=== PATIENT | female | born 1975 | race Caucasian/White ===

== ENCOUNTER 2017-11-25 14:19 | Emergency (ER) | payer SELFPAY ==
[2017-11-25 14:46] VITALS: BP 150/92
[2017-11-25] MEDS ORDERED: Ibuprofen TAB* 600 MG PO ONE (14:54)
--- NOTE | 2017-11-25 15:42 | RAD ---
INDICATION: Midthoracic back pain COMPARISON: None TECHNIQUE: PA dual-energy views were obtained. FINDINGS: Bones/Soft Tissues: There are no acute bony findings. Cardiomediastinal: The cardiomediastinal silhouette is normal. Lungs: There are no infiltrates. Pleura: There are no pleural effusions. Other: None IMPRESSION: NO ACTIVE DISEASE.
--- NOTE | 2017-11-25 15:43 | RAD ---
INDICATION: Back pain COMPARISON: None TECHNIQUE: Routine 2 view imaging was performed FINDINGS: Bones: There are no acute bony findings. There are no significant osteoarthritic findings. Alignment: There is mild kyphosis Disc spaces: The disc spaces are well-maintained Soft tissues: There are no soft tissue abnormalities. IMPRESSION: MILD KYPHOSIS, OTHERWISE NEGATIVE.
--- NOTE | 2017-11-25 15:52 | UC ---
Vannesa Laird Gabriel, scribed for Jorge Luis Vasquez MD on 11/25/17 at 1458 . Back Pain HPI - HPI Summary HPI Summary: This patient is a 42 year old F [place] [facility] [place] that occurred on . Pt slipped down deck steps and landed on her back and buttocks. She heard an audible pop when she struck and laid on the ground in pain for 15 minutes before she was able to get up again. The patient rates the pain 7/10 in severity. Patient reports tingling down her lower back. - History of Current Complaint Chief Complaint: UCBackPain Stated Complaint: BACK AND HIP PAIN Time Seen by Provider: 11/25/17 14:50 Hx Obtained From: Patient Hx Last Menstrual Period: ablasion Onset/Duration: Lasting Days, Still Present Timing: Constant Severity Initially: Moderate Severity Currently: Moderate Pain Intensity: 7 Pain Scale Used: 0-10 Numeric Associated Signs And Symptoms: Positive: Tingling - down into lower back - Allergies/Home Medications Allergies/Adverse Reactions: Allergies Allergy/AdvReac Type Severity Reaction Status Date / Time Penicillins Allergy Intermediate Rash Verified 11/25/17 14:46 PMH/Surg Hx/FS Hx/Imm Hx Endocrine History: Thyroid Disease Cardiovascular History: Hypertension Respiratory History: Asthma - Surgical History Surgical History: Yes Surgery Procedure, Year, and Place: T+A A CHILD. FX LEFT TIB 2008 [facility] [place]. appendix 2015. thyroid 2016. tatydarian delgado 2015 - Family History Known Family History: Positive: Hypertension Negative: Respiratory Disease, Seizure Disorder - Social History Lives: With Family Alcohol Use: Weekly Substance Use Type: None Smoking Status (MU): Never Smoked Tobacco - Immunization History Most Recent Influenza Vaccination: never Most Recent Tetanus Shot: within last 10 years Most Recent Pneumonia Vaccination: never Review of Systems Musculoskeletal: Other: - lower back pain Neurological: Paresthesia - into lower back All Other Systems Reviewed And Are Negative: Yes Physical Exam Triage Information Reviewed: Yes Vital Signs: Initial Vital Signs Temp 98.6 F 11/25/17 14:38 Pulse 79 11/25/17 14:38 Resp 16 11/25/17 14:38 BP 150/92 11/25/17 14:38 Pulse Ox 99 11/25/17 14:38 Vital Signs Reviewed: Yes - Additional Comments General: well-appearing, no pain distress Skin: warm, color reflects adequate perfusion, dry Head: normal Eyes: EOMI, JUAN ENT: normal Neck: supple, nontender Respiratory: CTA, breath sounds present Cardiovascular: RRR Abdomen: soft, nontender Bowel: present Musculoskeletal: normal, strength/ROM intact Back: Thoracic spine is TTP as well as the left buttock. There is a spot of ecchymosis on the left buttock 2.5 inches in diameter Neurological: normal, sensory/motor intact, A&O x3 Psychological: affect/mood appropriate Diagnostics - Radiology CXR Radiology Interpretation Completed By: Radiologist - NO ACTIVE DISEASE. Dr. Vasquez has reviewed this report. T spine xray Radiology Interpretation Completed By: Radiologist - MILD KYPHOSIS, OTHERWISE NEGATIVE. Dr. Vasquez has reviewed this report. Back Pain Course/Dx - Course Course Of Treatment: BP noted and advised to follow up with PCP. Allergies noted. DISCUSSED RESULTS WITH PATIENT. NO NEUROLOGIC DEFICIT. F/U PMD; REEVAL SOONER IF ANY WORSENING OF SX/NEUROLOGIC DEFICIT. - Differential Dx/Diagnosis Provider Diagnoses: THORACIC BACK PAIN. HTN Discharge - Discharge Plan Condition: Stable Disposition: HOME Prescriptions: oxyCODONE/Acetamin 5/325 MG* [Percocet 5/325 TAB*] 1 tab PO Q4H PRN #20 tab MDD 6 PRN Reason: Pain Patient Education Materials: Thoracic Pain (ED) Referrals: Melecio Vang MD [Primary Care Provider] - Additional Instructions: FOLLOW UP WITH YOUR DOCTOR. GET RECHECKED FOR ANY WORSENING OF YOUR CONDITION; WEAKNESS, NUMBNESS, LOSS OF CONTROL OF BOWEL OR BLADDER OR QUESTIONS OR CONCERNS. Your blood pressure was elevated during today's visit. Please follow up with your primary care provider in 1-2 weeks. The documentation as recorded by the Vannesa ordaz Gabriel accurately reflects the service I personally performed and the decisions made by me, Jorge Luis Vasquez MD.
== END 2017-11-25 16:00 | disposition home or self-care (01) ==
LOC: UCEAST 14:19
DX: M54.6 Pain in thoracic spine (principal); M54.5 Low back pain; R20.2 Paresthesia of skin; I10 Essential (primary) hypertension; E07.9 Disorder of thyroid, unspecified; J45.909 Unspecified asthma, uncomplicated
CPT/HCPCS: 71045; 72070; 99212; A9270-GY; G0463

== ENCOUNTER 2019-01-24 09:17 | Emergency (ER) | payer BC ==
--- NOTE | 2019-01-24 09:54 | ED ---
Abdominal Pain/Female - HPI Summary HPI Summary: This patient is a 43 year old female presenting to [facility] with a chief complaint of intermittent RLQ pain since a few days ago. The patient has already had an appendectomy and the pain presents at night. She reports nausea and vomiting. She states it is painful upon palpation. She experienced similar symptoms a month ago but they did not find anything at [place]. She has a Hx of a uterine hemorrhage and kidney stones. She is worried that she might be experiencing one of these problems again. The patient rates her pain 9/10 in severity. - History of Current Complaint Chief Complaint: EDAbdPain Stated Complaint: VOMITING PER PT Time Seen by Provider: 01/24/19 09:44 Hx Obtained From: Patient Hx Last Menstrual Period: ablasion Onset/Duration: Sudden Onset, Lasting Days Timing: Intermittent Episode Lasting Severity Initially: Severe Severity Currently: Severe Pain Intensity: 9 Pain Scale Used: 0-10 Numeric Location: Discrete At: RLQ Radiates: No Associated Signs and Symptoms: Positive: Nausea, Vomiting Allergies/Adverse Reactions: Allergies Allergy/AdvReac Type Severity Reaction Status Date / Time Penicillins Allergy Intermediate Rash Verified 01/24/19 09:30 Home Medications: Home Medications Furosemide 20 mg PO DAILY 01/24/19 [History Confirmed 01/24/19] Levothyroxine Sodium 125 mcg PO DAILY 01/24/19 [History Confirmed 01/24/19] PMH/Surg Hx/FS Hx/Imm Hx Endocrine/Hematology History: Reports: Hx Thyroid Disease - removed Denies: Hx Diabetes Cardiovascular History: Reports: Hx Hypertension Respiratory History: Reports: Hx Asthma - MILD. NO MEDS Denies: Hx Chronic Obstructive Pulmonary Disease (COPD) GI History: Reports: Hx Gastroesophageal Reflux Disease - ON PRILOSEC, Hx Hiatal Hernia Denies: Hx Ulcer History: Reports: Hx Kidney Stones - RIGHT SIDE 05-10-14 Sensory History: Denies: Hx Contacts or Glasses, Hx Hearing Aid Opthamlomology History: Denies: Hx Contacts or Glasses Neurological History: Reports: Other Neuro Impairments/Disorders - ADD ON WELLBUTRIN - Surgical History Surgery Procedure, Year, and Place: T+A A CHILD. FX LEFT TIB 2008 [facility] [place]. appendix 2015. thyroid 2016. kideny stone 2015 Hx Anesthesia Reactions: No Infectious Disease History: No Infectious Disease History: Denies: Hx Hepatitis, Hx Human Immunodeficiency Virus (HIV), Traveled Outside the [place] in Last 30 Days - Family History Known Family History: Positive: Hypertension Negative: Respiratory Disease, Seizure Disorder - Social History Alcohol Use: Weekly Substance Use Type: Reports: None Smoking Status (MU): Never Smoked Tobacco Review of Systems Negative: Fever Positive: Abdominal Pain, Vomiting, Nausea All Other Systems Reviewed And Are Negative: Yes Physical Exam - Summary Physical Exam Summary: Appearance: The patient is well-nourished in no acute distress and in no acute pain. Skin: The skin is warm and dry and skin color reflects adequate perfusion. HEENT: The head is normocephalic and atraumatic. The pupils are equal and reactive. The conjunctivae are clear and without drainage. Nares are patent and without drainage. Mouth reveals moist mucous membranes and the throat is without erythema and exudate. The external ears are intact. The ear canals are patent and without drainage. The tympanic membranes are intact. Neck: The neck is supple with full range of motion and non-tender. There are no carotid bruits. There is no neck vein distension. Respiratory: Chest is non-tender. Lungs are clear to auscultation and breath sounds are symmetrical and equal. Cardiovascular: Heart is regular rate and rhythm. There is no murmur or rub auscultated. There is no peripheral edema and pulses are symmetrical and equal. Abdomen: The abdomen is soft and tenderness in the RLQ. There are normal bowel sounds heard in all four quadrants and there is no organomegaly palpated. Musculoskeletal: There is no back tenderness noted. Extremities are non-tender with full range of motion. There is good capillary refill. There is no peripheral edema or calf tenderness elicited. Neurological: Patient is alert and oriented to person, place and time. The patient has symmetrical motor strength in all four extremities. Cranial nerves are grossly intact. Deep tendon reflexes are symmetrical and equal in all four extremities. Psychiatric: The patient has an appropriate affect and does not exhibit any anxiety or depression. Triage Information Reviewed: Yes Vital Signs On Initial Exam: Initial Vitals Temp Pulse Resp BP Pulse Ox 98.6 F 76 16 166/79 100 01/24/19 09:26 01/24/19 09:26 01/24/19 09:26 01/24/19 09:26 01/24/19 09:26 Vital Signs Reviewed: Yes Diagnostics - Vital Signs Vital Signs Temp Pulse Resp BP Pulse Ox 01/24/19 09:26 98.6 F 76 16 166/79 100 - Laboratory Lab Statement: Any lab studies that have been ordered have been reviewed, and results considered in the medical decision making process. - Ultrasound No standard instances Ultrasound Interpretation Completed By: Radiologist - Transvaginal U/S: Endometrial echo measures up to 0.8 cm with some small cystic spaces. Possibility of endometrial hyperplasia should be considered. No adnexal masses are noted. ED Provider has reviewed this report. Summary of Ultrasound Findings: Transvaginal U/S: Endometrial echo measures up to 0.8 cm with some small cystic spaces. Possibility of endometrial hyperplasia should be considered. No adnexal masses are noted. ED Provider has reviewed this report. US Renal Limited Right: No hydrophenosis of the right kidney is noted. ED Provider has reviewed this report. Abdominal Pain Fem Course/Dx - Course Course Of Treatment: Ms. Alvarado presented complaining of 2 days of right lower quadrant pain. She used to suffer from right lower quadrant pain that was difficult to diagnose several years ago and eventually got a diagnosis of some sort of uterine hemorrhage. She saw a specialist in [place] whom she still sees occasionally for follow-up visits. About a month ago she had a similar pain to 2 days and went to [facility] where they did an ultrasound of her kidney. She didn't get a diagnosis but the pain went away until 2 days ago. It's exacerbated by movement and she has no dysuria or nausea. She was nontoxic in appearance with stable vital signs. She was tender in the right lower quadrant. Essentially, she mandated her evaluation. At first she wanted a transvaginal ultrasound and allowed me also to check a urinalysis. The ultrasound was negative and I recommended CT scan to rule out a stone although the urinalysis was negative also. She refused bad but would allow an ultrasound of her right kidney which showed no hydronephrosis. I'm not sure of the diagnosis but I don't think anything dangerous is happening and I recommended follow-up with her PCP. - Diagnoses Provider Diagnoses: Abdominal pain Discharge - Sign-Out/Discharge Documenting (check all that apply): Patient Departure - Discharge Patient Received Moderate/Deep Sedation with Procedure: No - Discharge Plan Condition: Stable Disposition: HOME Prescriptions: traMADol TAB* [Ultram*] 50 mg PO Q6HR PRN #20 tab MDD 4 PRN Reason: Pain Patient Education Materials: Abdominal Pain (ED) Referrals: Melecio Vang MD [Primary Care Provider] - 2 Days Additional Instructions: Return to ED with any new or worsening symptoms. - Billing Disposition and Condition Condition: STABLE Disposition: Home - Attestation Statements Document Initiated by Scribe: Yes Documenting Scribe: Brian Orosco Provider For Whom Scribe is Documenting (Include Credential): Charles Cormier MD Scribe Attestation: IBrian, scribed for Charles Cormier MD on 01/24/19 at 1644. Scribe Documentation Reviewed: Yes Provider Attestation: The documentation as recorded by the Brian ordaz accurately reflects the service I personally performed and the decisions made by me, Charles Cormier MD Status of Scribe Document: Viewed
[2019-01-24 11:20] LABS: Urine Appearance Clear; Urine Bilirubin Negative (Negative); Urine Blood Negative (Negative); Urine Color Yellow; Urine Glucose Negative (Negative); Urine Ketones Negative (Negative); Urine Nitrite Negative (Negative); Urine Protein Negative (Negative); Urine Specific Gravity 1.023 (1.010-1.030); Urine Urobilinogen Negative (Negative)
[2019-01-24] MEDS ORDERED: traMADol TAB* 50 MG PO ONE (12:13)
[2019-01-24 15:59] VITALS: BP 164/90
== END 2019-01-24 15:57 | disposition home or self-care (01) ==
LOC: ED 09:17
DX: R10.31 Right lower quadrant pain (principal); Z87.442 Personal history of urinary calculi; I10 Essential (primary) hypertension; K21.9 Gastro-esophageal reflux disease without esophagitis
CPT/HCPCS: 76775; 76830; 81003; 99283; A9270-GY